=== PATIENT | male | born 1950 | race Caucasian/White ===

== ENCOUNTER 2018-04-25 06:29 | Inpatient (IN) | payer MEDICAID, OTHER ==
[~2018-04-25] VITALS: Ht 190.5 cm; Wt 118.0 kg
[~2018-04-25 06:29] MED LIST: AMLODIPINE BESY10 MG PO; COZAAR25 MG; COZAAR25 MG PO; FLONASE ALLERG9.9 ML NS; GABAPENTIN400 MG; HYDROCHLOROTH12.5 MG; HYDROCHLOROTH12.5 MG PO; HYDROCODON-ACE1 EA10 PO; IBUPROFEN600 MG PO; LIPITOR40 MG PO; MICROZIDE12.5 MG PO; NEURONTIN600 MG PO; SENNA LAX8.6 MG PO; SILVADENE20 GM TOP; SULFAMETHOXAZO1 EAC1 PO; ZYRTEC10 M3 PO
[2018-04-25] MEDS ORDERED: DULOXETINE HCL30 MG PO (06:46)
--- NOTE | 2018-04-25 11:02 | NUR ---
PT ARRIVED TO UNIT AT 0957 ON STRETCHER WITH [facility] PERSONNEL AND RN INDIVIDUAL SMALL GROUP INSTRUCTOR. PT ABLE TO TRANSFER TO BED INDEPENDENTLY. PT HAS 4 POINT RESTRAINTS PER [facility] POLICY. REDNESS ON RIGHT LEG OUTLINED. PT STATED PAIN IS CONTROLED. PT VOIDED, UNMEASURED. RN INSTRUCTED PT TO USE URINAL FOR MEASUREMENT. PT VERBALIZED UNDERSTANDING. WATER GIVEN TO PT.
[2018-04-25] MEDS ORDERED: VANCOMYCIN1 GM/1001 IV (13:08)
--- NOTE | 2018-04-25 13:09 | NUR ---
Medications reconciled using facility MAR. At admission, patient had received vancomycin 1g iv q 12 hrs x 3 doses from facility. Last dose was 04/24/18 @ 2019. Trough of 6.5 was drawn 04/25/18 @ 0700 in ED. Vancomycin dose will be recalculated and dispensed by pharmacy. First of 1500mg due at 1100.
--- NOTE | 2018-04-25 14:41 | NUR ---
PATIENT RESTING IN BED, GUARDS IN ROOM, RESTRAINTS ON. PATIENT CALL LIGHT IN REACH. NO OTHER NEEDS AT THIS TIME. RN IN ROOM.
--- NOTE | 2018-04-25 17:16 | NUR ---
[facility] INMATE, CORRECTIONAL OFFICERS X2 AT BEDSIDE. PT IS AWAKE AND ALERT, COOPERATES WITH CARES. PLEASANT. RED AREA ON RIGHT LEG OUTLINED. PT SLEEPY THIS SHIFT, WAKES TO VOICE. PT TOLERATING IV ABX WELL. NEW IV IN L HAND. IV RIGHT FOREARM STARTED AT [facility]. PT REPORTS NO N/V/D/. NO PAIN REPORTED.
--- NOTE | 2018-04-25 18:08 | NUR ---
PATIENT RESTING IN BED EATING DINNER, GUARDS IN ROOM. NO OTHER NEEDS AT THIS TIME.
--- NOTE | 2018-04-25 18:16 | NUR ---
RAH Marcus REPORTED TO RN A TEMP OF 100.6, TEMPORAL. DR FLETCHER NOTIFIED. NO NEW ORDERS. RN ADVISED DR FLETCHER REDNESS HAS RECEEDED FROM THE OUTLINE, BUT THE AREA INSIDE THE OUTLINE IS DEEPER RED, MORE ANGRY LOOKING. DR FLETCHER ADVISED THAT IS TO BE EXPECTED THE ABX START WORKING.
--- NOTE | 2018-04-25 19:05 | NUR ---
RECEIVED REPORT FROM DAY SHIFT RN. PATIENT IS RESTING IN BED. X2 GUARDS AT THE BEDSIDE. RESTRAINTS IN PLACE PER [facility]. PATIENT DENIES ANY NEEDS AT THIS TIME. CALL LIGHT IN REACH.
--- NOTE | 2018-04-25 21:05 | NUR ---
PATIENT ASSESMENT COMPLETED. PATIENT RATES PAIN AT A 4/10. PATIENT GIVEN PRN TYLENOL PER REQUEST. PATIENTS EVENING MEDICATIONS GIVEN PER ORDER. PATIENT REMAINS IN RESTRAINTS PER [facility]. PATIENT HAS NO SKIN BREAKDOWN FROM RESTRAINTS. PATIENTS RIGHT LEG IS HOT TO THE TOUCH. PATIENTS LEG IS ALSO RED. REDNESS IS OUTLINED. PATIENT DENIES ANY FURTHER NEEDS AT THIS TIME. CARTON MAKING MACHINE OPERATOR IN ROOM TO TAKE VITALS. CALL LIGHT IN REACH.
--- NOTE | 2018-04-25 23:29 | NUR ---
PATIENT IS RESTING IN BED WITH EYES CLOSED. PATIENTS RR IS 18. X2 GUARDS REMAIN IN THE ROOM. CALL LIGHT IN REACH.
--- NOTE | 2018-04-26 03:01 | NUR ---
PATIENTS 0200 MEDICATIONS GIVEN PER ORDER. PATIENT DENIES ANY NEEDS AT THIS TIME. VITALS TAKEN AND RECORDED. X2 GUARDS REMAIN IN THE ROOM. CALL LIGHT IN REACH.
--- NOTE | 2018-04-26 04:55 | NUR ---
PATIENT IS RESTING IN BED WITH EYES CLOSED. BREATHING IS EVEN AND UNLABORED, RR 17. X2 GUARDS REMAIN AT THE BEDSIDE. CALL LIGHT IN REACH.
--- NOTE | 2018-04-26 05:51 | NUR ---
PATIENT RESTED WELL THROUGHOUT THE SHIFT. PATIENT IS ON A REG DIET AND IS TOELRATING IT WELL, NO NAUSEA NOTED. PATIENT IS IN [facility] RESTRAINTS, NO BREAKDOWN FRO RESTARINTS NOTED. PATIENT IS A SBA. REDNESS ON PATIENTS LEG IS OUTLINE. PATIENT IS AAOX3.
--- NOTE | 2018-04-26 05:55 | NUR ---
PATIENT IS RESTING IN BED. X2 GUARDS AT THE BEDSIDE. PATIENT DENIES ANY PAIN. PATIENT DENIES ANY NEEDS AT THIS TIME. CALL LIGHT IN REACH.
--- NOTE | 2018-04-26 06:26 | NUR ---
PATIENT GIVEN PRN TYLENOL PER PATIENT REQUEST. PATIENT RATES PAIN AT A 4/10 IN HIS RIGHT LEG. NO FURTHER NEEDS NOTED. CALL LIGHT IN REACH.
--- NOTE | 2018-04-26 08:07 | NUR ---
PT REPORTS PAIN LEVEL TOLERABLE AT THIS TIME. HE SAID THE TYLENOL HELPED THAT WAS GIVEN EARLIER THIS AM. PT ALERT AND ORIENTED. RLE ASSESSMENT RED AREA OUTLINED RECEEDING, WARM, ONLY SLIGHTLY MORE SO THAN LEFT LEG.
--- NOTE | 2018-04-26 08:08 | EKG ---
[facility] [address] [place] [address] Signed Normal sinus rhythm Nonspecific ST abnormality Prolonged QT Abnormal ECG When compared with ECG of 25-JUL-2016 03:30, Nonspecific T wave abnormality, improved in Inferior leads QT has lengthened Confirmed by SERENITY FLETCHER MD ([id number]) on 04/26/2018 8:07:17 AM Electronically Signed By: SERENITY FLETCHER MD 04/26/18 0808 PATIENT NAME: TETE MAYNARD KIMBERLY Electrocardiogram DATE OF : 54 PHYSICIAN: SERENITY FLETCHER MD REPORT #: [id number] REPORT IS CONFIDENTIAL AND NOT TO BE RELEASED WITHOUT AUTHORIZATION
--- NOTE | 2018-04-26 10:25 | NUR ---
PATIENT RESTING IN BED, RESTRAINTS ON, TWO GUARDS IN ROOM. PATIENT CALL LIGHT IN REACH. NO OTHER NEEDS AT THIS TIME.
--- NOTE | 2018-04-26 12:25 | NUR ---
PT RESTING IN BED RESTRAINTS PER [facility], CHECKED FOR SKIN BREAK DOWN, PT TOLERATING WELL. LUNCH FINISHED, DENTAL CARE SUPPLIES PROVIDED. I.V. SITE LEFT HAND FLUSHING WNL, MAICOO INFUSING
--- NOTE | 2018-04-26 14:06 | NUR ---
PATIENT RESTING IN BED, RESTRAINTS ON, TWO GUARDS IN ROOM. PATIENT EYES CLOSED, LIGHTS OFF. CALL LIGHT IN REACH. NO OTHER NEEDS AT THIS TIME.
--- NOTE | 2018-04-26 15:22 | NUR ---
PT HAS SHOWERED AND IS NOW UP AMBUALTING IN HALLS AT THIS TIME. TOLERATING ACTIVITY WELL, BED LINENS CHANGED.
--- NOTE | 2018-04-26 15:34 | NUR ---
THIS PAPER MAKER, ARH SANCHEZ AND LUCY MARTINEZ ASSISTED TO SET UP PATIENT FOR A SHOWER. PATIENT SHOWERED WITH ASSISTANCE FROM TWO [facility] GUARDS. LINENS CHANGED, ROOM CLEANED. PATIENT WALKED HALLWAYS WITH GUARDS. PATIENT BACK IN BED, REQUESTING TYLENOL. RN NOTIFIED. CALL LIGHT IN REACH. RESTRAINTS IN PLACE. NO OTHER NEEDS AT THIS TIME.
--- NOTE | 2018-04-26 17:12 | NUR ---
PT HAS BEEN UP AMBUALTING IN HALLS, HE HAS SHOWERED TODAY, BED LINENS CHANGED. RIGHT LEG CELLULITIS RECEDING FROM SKIN MARKER OUTLINE. PT REPORTS MILD PAIN TYLENOL HAS BEEN WORKING TO MAINTAIN TOLERABLE LEVEL OF PAIN THAT HE STATES IS 5/10. GOOD APPETITE, GOOD URINE OUT. HAS BEEN AFEBRILE OVER SHIFT.
--- NOTE | 2018-04-26 18:39 | NUR ---
PATIENT RESTING IN BED, [facility] GUARDS IN ROOM. CALL LIGHT IN REACH, NO OTHER NEEDS AT THIS TIME.
--- NOTE | 2018-04-26 19:25 | NUR ---
RECEIVED REPORT FROM DAY SHIFT RN. PATIENT IS RESTING IN BED WATCHING TV. X2 GUARDS REMAIN IN THE ROOM. NO NEEDS NOTED.
--- NOTE | 2018-04-26 21:00 | NUR ---
PATIENT ASSESMENT COMPLETED. PATIENT IS RESTING IN BED WATCHING TV. PATIENT COMPLAINS OR 4/10 PAIN IN HIS RIGHT LEG. PRN TYELNOL GIVEN PER ORDER. PATIENTS EVENING MEDICATIONS GIVEN PER ORDER. PATIENTS IV ABX INFUSING. PATIENT DENIES ANY FURTHER NEEDS AT THIS TIME. VITALS TAKEN AND RECORDED. PATIENT REMAINS IN RESTRAINTS PER [facility]. NO BREAKDOWN NOTED FROM RESTRAINTS. X2 GUARDS IN THE ROOM. CALL LIGHT IN REACH.
--- NOTE | 2018-04-26 23:03 | NUR ---
PATIENT IS RESTING IN BED WITH EYES CLOSED. RR17. CALL LIGHT IN REACH. X2 GUARDS IN THE ROOM.
--- NOTE | 2018-04-27 00:20 | NUR ---
PATIENTS MEDICATIONS GIVEN PER ORDER. PATIENT DENIES ANY PAIN AT THIS TIME. PATIENTS URINAL EMPTIED. NO FURTHER NEEDS NOTED CALL LIGHT IN REACH.
--- NOTE | 2018-04-27 02:46 | NUR ---
PATIENTS MEDICATIONS GIVEN PER ORDER. NO NEEDS NOTED. CALL LIGHT IN REACH.
--- NOTE | 2018-04-27 04:04 | NUR ---
PATIENT IS RESTING IN BED WATCHING TV. NO NEEDS NOTED. X2 GUARDS IN THE ROOM. CALL LIGHT IN REACH.
--- NOTE | 2018-04-27 05:49 | NUR ---
PATIENTS VITALS TAKEN AND RECORDED. PATIENT DENIES ANY PAIN AT THIS TIME. PATIENT DENIES ANY NEEDS. RESTRAINTS REMAIN IN PLACE PER [facility]. NO BREAKDOWN NOTED UNDER RESTARINTS. X2 GUARDS REMAIN IN THE ROOM. CALL LIGHT IN REACH.
--- NOTE | 2018-04-27 06:00 | NUR ---
PATIENT RESTED ON AND OFF THROUGHOUT THE SHIFT. PATIENT IS ON A REGUALR DIET AND IS TOELRATING IT WELL. PATIENT IS A SBA AND IS STEADY ON HIS FEET. PATIENT HAS RESTRAINTS PER [facility] POLICY, NO BREAKDOWN NOTED. PATIENT RECEIVED PRN TYLENOL X1 FOR PAIN IN HIS RIGHT LEG. OUPUT IS QS. IV INFUSING. PATIENT IS AAOX3 AND USES CALL LIGHT APPROPRIATELY. X2 GUARDS REMAIN IN THE ROOM. PATIENTS RIGHT LEG REDNESS IS OUTLINED AND NO CHANGES NOTED ON THIS SHIFT.
--- NOTE | 2018-04-27 08:30 | NUR ---
PATIENT FINISHED BREAKFAST. GUARDS IN ROOM. ASSESSMENT COMPLETE. PATIENT TOLERATED WELL. PAIN 5/10. TYELENOL GIVEN WITH MORNING MEDICATIONS.
--- NOTE | 2018-04-27 10:25 | NUR ---
VS AND I&O'S TAKEN AND DOCUMENTED. DISCUSSED WITH PT THAT HE NEEDS TO WALK AFTER HE GETS HIS LABS DRAWN AT 1030. PT AGREED. INFORMED PT TO CALL IF HE NEEDS ANYTHING. CALL LIGHT IS IN REACH.
--- NOTE | 2018-04-27 10:38 | NUR ---
CALLED LAB FOR DEMETRIS SANDOVAL
--- NOTE | 2018-04-27 10:44 | NUR ---
PATIENT AMBULATING IN [facility].
--- NOTE | 2018-04-27 12:25 | NUR ---
MAICOO STARTED. PLAN TO DISCHARGE PATIENT AFTER VANCO. UPDATED GIVEN FROM DR. FLETCHER
--- NOTE | 2018-04-27 14:10 | NUR ---
Removed R and L PIVs; sites WNL and catheters intact. No patient complaints.
--- NOTE | 2018-04-27 14:20 | NUR ---
VITALS TAKEN. PATIENT ASSISTED OUT TO CAR WITH 2 GUARDS. PATIENT TOLERATED MOVEMENT WELL. CALLED REPORT TO [facility]. FAXED NEW LABS.
--- NOTE | 2018-04-27 14:23 | NUR ---
PT UP AMBULATING IN HALLWAY WITH GUARDS. FRIENDLY, SEEMED TO BE ENJOYING BEING UP AND WALKING. GAVE ENCOURAGEMENT, HE ACKNOWLEDGED AND THANKED ME. WILL FOLLOW NEEDED
== END 2018-04-27 14:19 | disposition home or self-care (01) | DRG 603 ==
LOC: ED 06:29 → MS 10:05
PROVIDERS: ADMIT Internal Medicine
DX: L03.115 Cellulitis of right lower limb (principal); G89.29 Other chronic pain; G62.9 Polyneuropathy, unspecified; I10 Essential (primary) hypertension; E78.5 Hyperlipidemia, unspecified; Z86.19 Personal history of other infectious and parasitic diseases; E87.6 Hypokalemia
CPT/HCPCS: 36415; 71045; 80048; 80053; 80202; 81001; 83605; 83735; 85025; 90715; 93005; 93010; 96365; 96366; 96367; 99285; J0692; J1650; J3370; J3480; J7050; J7060